=== PATIENT | female | born 1970 | race Caucasian/White ===

== ENCOUNTER → 2019-12-07 | Outpatient (CLI) | payer MEDICAID, MEDICARE, OTHER ==
[~2019-12-07] MED LIST: CALC600T10; FIBER THERAPY; FLEXERIL; OXYC80TA14; PHEN 25; PRIL20CA; SAVELLA; TOPI200T; TOVIAZ; VALI10TA; XANA0.5T; ZOLO25TA; ZOVI400T
== END ==
LOC: M PAIN 13:47
PROVIDERS: ATTEND Family Medicine
DX: M79.18 Myalgia, other site (principal)

== ENCOUNTER → 2019-12-24 | Outpatient (CLI) | payer MEDICAID, MEDICARE | LOC: M LABSMTC 13:56 | PROVIDERS: ATTEND Anesthesiology | DX: Z20.828 Contact with and (suspected) exposure to other viral communicable diseases (principal) | CPT/HCPCS: C9803; U0003 ==

== ENCOUNTER → 2019-12-29 | Outpatient (CLI) | payer MEDICARE ==
[~2019-12-29] MED LIST changes: +BUPIVACAINE HCL 0.25% 10ML VIAL As Ordered ONE; +BUPIVACAINE HCL 0.25% 30ML VIAL As Ordered ONE; +diazePAM 5 MG TAB As Ordered ONE; +oxyCODONE 5MG TAB As Ordered ONE
--- NOTE | 2019-12-30 23:24 | ECWPNPC ---
PATIENT NAME: RAGHAVENDRA PONCE : 1970 GENDER: FEMALE VISIT DATE: 12/29/2019 DISCHARGE DATE: 12/29/19 152 VISIT LOCKED DATE TIME: PHYSICIAN: ZEE CHOUDHARY MD RESOURCE: ZEE CHOUDHARY MD REASON FOR APPOINTMENT 1. BILATERAL NECK/SHOULDER TPI HISTORY OF PRESENT ILLNESS GENERAL: -. FALL RISK SCREENING: SCREENING :ONE FALL WITH INJURY IN THE PAST YEAR SHE WAS WALKING OUTSIDE IN BAD WEATHER AND LEFT LEG GAVE OUT ON HER, STATED SHE WAS NOT EVALUATED AFTER BUT INJURED HER LEFT KNEE PAIN SCREENING: PATIENT HAS A COMPLAINT OF ACUTE OR CHRONIC PAIN :YES LOCATION OF PAIN:NECK, BOTH SHOULDERS, OTHER: BOTH SHOULDER BLADES INTENSITY OF PAIN (SCALE OF 1 TO 10):9 WHAT DOES YOUR PAIN FEEL LIKE:ACHING, BURNING, CONTINOUS, SHARP, STABBING, TENDER, SORE, SHOOTING SOMETIMES DOWN SHOULDER BLADES, ARMS AND HANDS DURATION:CONTINOUS, CONSTANT, AWAKENS FROM SLEEP PAIN IS INCREASED BY:ACTIVITIES, PROLONGED STANDING DOING DISHES, HOUSE WORK PAIN IS DECREASED BY:USE OF PAIN MEDICATIONS, OTHERS REST, HEAT PAIN HAS INTERFERED WITH THE FOLLOWING: EVERYTHING NURSING NOTE: -. PAIN CENTER INTAKE QUESTIONS: DO YOU HAVE A HISTORY OF MRSA? :NO DO YOU TAKE A BLOOD THINNERS? :NO DO YOU HAVE ANY BLEEDING DISORDERS? :NO ANY NEW NUMBNESS OR WEAKNESS IN YOUR LEGS OR ARMS? :NO ANY PACEMAKER,DEFIBRILLATOR, OR DORSAL COLUMN STIMULATOR? :NO DO YOU HAVE ANY RASHES OR OPEN SORES? :NO ARE YOU ALLERGIC TO IV DYE? :NO ARE YOU DIABETIC? :NO ANY NEW PROBLEMS WITH YOUR MEDICATIONS? :NO HAVE YOU RECEIVED A VACCINE IN THE PAST 30 DAYS? :NO DO YOU PLAN TO RECEIVE A VACCINE IN THE NEXT 21 DAYS? :NO DO YOU TAKE ANY IMMUNOSUPPRESSIVE MEDICATIONS? :NO ANY HISTORY OF SEIZURES? :YES A LONG TIME AGO-WAS BIT BY A TICK AND HAD SPINAL MENINGITIS. WAS ON MEDICATIONS BUT NOT NOW ANY HISTORY OF CARDIAC ISSUES OR EVENTS? :NO DO YOU HAVE SLEEP APNEA? :NO ANY RECENT HEAD INJURY? :NO DO YOU HAVE ANY NEW INFECTIONS? :NO IS THERE A CHANCE YOU COULD BE ? :NO ARE YOU BREAST FEEDING? :NO WHEN DID YOU LAST EAT? : 12/28/2019 1830 WHEN DID YOU LAST DRINK? : 12/29/2019 0900 WHAT DID YOU LAST DRINK? : BLACK COFFEE NAME OF PERSON DRIVING YOU HOME? : [facility] [employer]-SO DO YOU HAVE ANY OTHER QUESTIONS OR CONCERNS? : - CURRENT MEDICATIONS TAKING GABAPENTIN 800 MG TABLET 1 TABLET ORALLY TID, NOTES: 12/29/19 0900 TAKING SONATA 10 MGS -1CAP ORALLY BEFORE BEDTIME NEEDED, NOTES: 12/28/19 TAKING VITAMIN D 50 MCG (2000 UT) TABLET 1 TABLET ORALLY ONCE A DAY, NOTES: 12/28/19 TAKING PROAIR HFA 108 (90 BASE) MCG/ACT AEROSOL SOLUTION 2 PUFFS NEEDED INHALATION QID PRN, NOTES: 12/29/19 TAKING PANTOPRAZOLE SODIUM 40 MG PACKET 1 PACKET MIXED WITH APPLE JUICE OR APPLESAUCE ORALLY ONCE A DAY, NOTES: 12/29/19 AM TAKING ONDANSETRON 4 MG TABLET DISINTEGRATING 1 TABLET ON THE TONGUE AND ALLOW TO DISSOLVE SUBLINGUALLY EVERY 4 HOURS NEEDED, NOTES: 12/28/19 TAKING PROPRANOLOL HCL ER 60 MG CAPSULE EXTENDED RELEASE 24 HOUR 1 CAPSULE ORALLY ONCE A DAY, NOTES: 12/28/19 TAKING SUMATRIPTAN SUCCINATE 50 MG TABLET 1 TABLET ORALLY BEFORE BEDTIME, NOTES: 12/28/19 TAKING OXYCODONE HCL 5 MG CAPSULE 1-2 CAPSULES ORALLY EVERY 4 HOURS NEEDED, NOTES: 12/29/19 TAKING ATORVASTATIN CALCIUM 10 MG TABLET 1 TABLET ORALLY ONCE A DAY, NOTES: 12/28/19 TAKING DULCOLAX STOOL SOFTENER 100 MG CAPSULE 1 CAPSULE NEEDED ORALLY ONCE A DAY, NOTES: 12/28/19 TAKING ACYCLOVIR 400 MG TABLET 1 TABLET ORALLY TWICE A DAY NEEDED, NOTES: NONE LATELY TAKING BUSPIRONE HCL 30 MG TABLET 1 TABLET ORALLY TWICE A DAY, NOTES: 12/29/19 AM TAKING SOLIFENACIN SUCCINATE 10 MG TABLET 1 TABLET ORALLY ONCE A DAY, NOTES: 12/28/19 NOT-TAKING NORTRIPYTLINE HCL 50 MGS-1CAP ORALLY BEFORE BEDTIME MEDICATION LIST REVIEWED AND RECONCILED WITH THE PATIENT PAST MEDICAL HISTORY NECK AND SHOULDER PAIN FIBROMYALGIA ARTHRITIS BRAIN ANEURYSM PTSD [facility] RIGHT EYE SPINAL MENINGITIS COPD CHRONIC KIDNEY DISEASE-CYST IN LEFT KIDNEY ALLERGIES BIAXIN: ABDOMINAL SWELLING - ALLERGY PEANUTS: ANAPHYLAXIS - ALLERGY SURGICAL HISTORY PLATES AND SCREWS IN NECK 2006 RODS AND SCREWS IN LUMBAR AREA 2010 APPENDECTOMY A CHILD FAMILY HISTORY FATHER: , LUNG CA 5 DE'S, SEVERAL CARDIAC STENTS, DIAGNOSED WITH DIABETES MOTHER: , FROM COMPLICATIONS FROM MVA, DIABETES 2 SON(S) - HEALTHY. OLDEST BROTHER- DIABETES, HEART [id number] OLDEST BROTHER- DIABETES. SOCIAL HISTORY GENERAL: TOBACCO USE ARE YOU A: VAPES PERIODICAL THROUGHTOUT THE DAY VAPORYES LATEX QUESTIONNAIRE LATEX ALLERGY : HAVE YOU EVER DEVELOPED ANY TYPE OF REACTION AFTER HANDLING LATEX PRODUCTS SUCH RUBBER GLOVES, CONDOMS, DIAPHRAGMS, BALLOONS, SOCKS, OR UNDERWEAR?NO LATEX ALLERGY : HAVE YOU EVER DEVELOPED ANY TYPE OF REACTION DURING OR AFTER DENTAL APPOINTMENT, VAGINAL/RECTAL EXAMINATION, SURGICAL PROCEDURE, OR ANY OTHER EXPOSURE?NO LATEX RISK : HAVE YOU EVER HAD ANY DIFFICULTY BREATHING OR HIVES AFTER EATING OR HANDLING ANY FRUITS, OR VEGETABLES; SUCH KIWI, BANANAS, STONE FRUITS, OR CHESTNUTSNO LATEX RISK : DO YOU HAVE A PREVIOUS PERSONAL HISTORY OF MORE THAN NINE SURGERIES, SPINA BIFIDA, OR REPEATED CATHERIZATIONS? NO LATEX RISK : ARE YOU FREQUENTLY EXPOSED TO LATEX PRODUCTS IN YOUR OCCUPATION?NO DATE ASKED : 12/28/2019 ALCOHOL SCREENING DID YOU HAVE A DRINK CONTAINING ALCOHOL IN THE PAST YEAR?NO POINTS0 INTERPRETATIONNEGATIVE RECREATIONAL DRUG USE DRUG USE?NO RASTAFARI [id number] EPISCOPAL LANGUAGE LANGUAGES SPOKEN:AMHARIC EDUCATION LEVEL OF EDUCATION: 11TH GRADE LEARNING BARRIERS / SPECIAL NEEDS BARRIERS TO LEARNING?NO HEARING IMPAIRED?NO VISION IMPAIRED?YES :CORRECTIVE LENSES BLIND IN RIGHT EYE COGNITIVELY IMPAIRED?NO READINESS TO LEARN?YES LEARNING PREFERENCES?NO LEARNING CAPABILITIES PRESENT?YES EMOTIONAL BARRIERS?NO SPECIAL DEVICES?YES :CANE, WALKER MAINTAINER OPERATOR NEEDED?NO DOMESTIC VIOLENCE DO YOU FEEL SAFE IN YOUR ENVIRONMENT?YES OCCUPATION: DISABLED. PAIN CLINIC PFS, CLERGY, PUBLIC HEALTH REFERRALS HAS THE PATIENT BEEN EDUCATED REGARDING HIS/HER PLAN OF CARE?YES HAS THE PATIENT BEEN EDUCATED REGARDING PAIN, THE RISK FOR PAIN, THE IMPORTANCE OF EFFECTIVE PAIN MANAGEMENT, AND THE PAIN ASSESSMENT PROCESS?YES ADVANCE DIRECTIVE ADVANCE DIRECTIVE DISCUSSED WITH PATIENT:YES 12/28/19 PT STATES SHE DOES NOT HAVE ANY ADVANCED DIRECTIVES. SHE DECLINED INFORMATION ON HCP AT THIS TIME HOSPITALIZATION/MAJOR DIAGNOSTIC PROCEDURE SURGERIES CHILDBIRTH MENTAL HEALTH VITAL SIGNS WT 200.2 LBS, HT 53 IN, BMI 50.10 INDEX, BP 130/82 MM HG, HR 103 /MIN, RR 18 /MIN, TEMP 98.6 F, OXYGEN SAT % 97%, NA INITIALS AW 1325, REVIEWED BY: EM. EXAMINATION GENERAL EXAMINATION: THE PATIENT IS ALERT, ORIENTED TIMES THREE AND COOPERATIVE. HEART SHOWS REGULAR RHYTHM, NO MURMURS AND NO GALLOPS. LUNGS ARE CLEAR TO AUSCULTATION. ASSESSMENTS MYALGIA, OTHER SITE - M79.18 (PRIMARY) TREATMENT MYALGIA, OTHER SITE MEDICATION: VALIUM TAB 10MG ORALLY (DIAZEPAM)MYRANDA MULLEN 12/29/2019 2:38:12 PM > VERIFIED OTTO SLATER 12/29/2019 2:42:46 PM > ADMINISTERED LOT # [id number] EXP: 06/04 MEDICATION: OXYCODONE HCL TAB 10MG ORALLYDEMYRANDA ORELLANA 12/29/2019 2:38:33 PM > VERIFIED OTTO SLATER 12/29/2019 2:43:26 PM > ADMINISTERED LOT # [id number] EXP: 04/2021 PROCEDURES PAIN NURSING RECORD PRE-PROCEDURE IV SITE N/A PROCEDURE IN ROOM 1305, PHYSICIAN IN ROOM 1501, START 1506, FINISH 1509, PHYSICIAN OUT OF ROOM 1509, OUT OF ROOM 1530, STEROID N/A, O2 RA, ECG N/A, PATIENT SHIELDED NO, SAFETY STRAP NO, PREP ALCOHOL BY DR CHOUDHARY, IV INFUSED N/A, DRESSING TEGADERM BY Steven ROLLE RN LOC: OTTO SLATER 12/29/2019 1520. ALERT, ORIENTED RESP: 1. REGULAR, NO DYSPNEA OTTO SLATER 12/29/2019 1520 COLOR: 1. PINK- OTTO SLATER 12/29/2019 152 SKIN: 1. WARM, DRY OTTO SLATER 12/29/2019 1520 POSITION: 4. OTHER- SITTING OTTO SLATER 12/29/2019 1520 VITALS: OTTO SLATER 12/29/2019 1520 PM> 121/86-64-18-96% DISCHARGE: POST PAIN 06/24- RIGHT NECK AND RIGHT SHOULDER, DRESSING SITE DRY AND INTACT, IV N/A, GAIT STEADY, TEACHING COMPLETED, PATIENT ACKNOWLEDGES UNDERSTANDING YES PATIENT VERBALIZES UNDERSTANDING OF DISCHARGE INSTRUCTIONS REVIEWED., PATIENT DISCHARGED AT 1522 PN TRIGGER POINT INJECTION NO STEROIDS PRE PROCEDURE DIAGNOSIS 1. MYALGIA 2. PAIN AT BILATERAL NECK AREA AND BILATERAL SHOULDER AREA POST PROCEDURE DIAGNOSIS 1. MYALGIA 2. PAIN AT BILATERAL NECK AREA AND BILATERAL SHOULDER AREA PROCEDURE TRIGGER POINT INJECTION AT BILATERAL NECK AREA AND BILATERAL SHOULDER AREA SURGEON DR. ZEE CHOUDHARY BENEFITS COUNSELOR NONE ANESTHESIA LOCAL PRE PROCEDURE NOTE THE PATIENT WITH HISTORY OF CHRONIC PAIN AT RIGHT AND LEFT NECK AREA AND RIGHT AND LEFT SHOULDER AREA. I EVALUATED THE PATIENT AND REVIEWED THE CHART. THERE IS EVIDENCE OF BANDS OF TISSUE WITH RESTRICTION OF MOVEMENT AND PRESENCE OF TRIGGER POINT AT THE RIGHT AND LEFT NECK AREA AND RIGHT AND LEFT SHOULDER AREA. I WENT OVER THE RISKS, ALTERNATIVES, AND BENEFITS ASSOCIATED WITH THIS PROCEDURE. THE PATIENT WOULD LIKE TO PROCEED AND GAVE CONSENT TO PERFORM THE PROCEDURE. THE PATIENT DENIES UNEXPLAINABLE WEIGHT LOSS, FEVER, CHILLS, OR NEW CHANGES IN URINARY OR BOWEL CONTROL. THE PATIENT IS COVID-19 NEGATIVE DESCRIPTION OF PROCEDURE THE PATIENT WAS BROUGHT TO THE PROCEDURE ROOM AND PLACED IN THE SITTING POSITION. THE AREA WAS CLEANED WITH ALCOHOL. THE PROCEDURE WAS DONE USING ASEPTIC STERILE TECHNIQUES. I CHECKED LATERALITY AND THE LEVEL WHERE THE PROCEDURE WAS GOING TO BE PERFORMED WITH THE PATIENT AND THE SUPPORTING STAFF AT THE MOMENT OF THE TIME OUT IN THE PROCEDURE ROOM. USING A 25-GAUGE NEEDLE, TRIGGER POINTS WERE INJECTED INTO THE RIGHT AND LEFT NECK AREA AND RIGHT AND LEFT SHOULDER AREA WITH A TOTAL OF 40 ML OF BUPIVACAINE 0.25%. AGREED WITH THE PATIENT THE PROCEDURE WAS DONE WITHOUT STEROIDS. THERE WAS NO EVIDENCE OF BLOOD, PARESTHESIA OR CEREBROSPINAL FLUID DURING THE PROCEDURE. THE PATIENT WAS SENT TO THE RECOVERY ROOM. THE PATIENT WAS MOVING THE EXTREMITIES AND DOING WELL. THERE WAS NO COMPLICATION DURING THE PROCEDURE. EBL LESS THAN 5 ML. POST PROCEDURE NOTE THE PROCEDURE DONE WAS DISCUSSED WITH THE PATIENT. THE PATIENT WILL BE SEEN IN A FOLLOW UP IN THE NEXT FEW WEEKS. I AM LOOKING FOR LONG LASTING PAIN RELIEF FOR THE PATIENT WITH THIS INTERVENTION. INSTRUCTIONS WERE GIVEN, QUESTIONS WERE ANSWERED, AND THE PATIENT EXPRESSED UNDERSTANDING AND AGREES WITH THE PLAN. I, NIMCO BRISENO, DOCUMENTED THE ABOVE INFORMATION ACTING A SCRIBE FOR DR. CHOUDHARY. I HAVE REVIEWED THE ABOVE DOCUMENT, WRITTEN BY NIMCO BRISENO, TOW MOTOR MECHANIC, AND I VERIFY THAT IT IS ACCURATE PROCEDURE CODES 94710 INJECT TRIGGER POINTS 3/> DISPOSITION & COMMUNICATION FOLLOW UP FOLLOW UP WITH CROSS ENTERPRISE INTEGRATOR (REASON: POST TPI BILATERAL NECK AND BILATERAL SHOULDER) ELECTRONICALLY SIGNED BY ZEE CHOUDHARY MD, MD ON 12/30/2019 AT 02:49 PM EDT DISCLAIMER : THIS IS A VISIT SUMMARY EXTRACTED FROM THE [employer] CHART. IT IS NOT A COPY OF THE [employer] PROGRESS NOTE. MTDD
== END ==
LOC: M PAIN 13:00
PROVIDERS: ATTEND Anesthesiology
DX: M79.18 Myalgia, other site (principal); M79.7 Fibromyalgia; F43.10 Post-traumatic stress disorder, unspecified; F32.9 Major depressive disorder, single episode, unspecified; J44.9 Chronic obstructive pulmonary disease, unspecified; N18.9 Chronic kidney disease, unspecified; F17.290 Nicotine dependence, other tobacco product, uncomplicated; Z79.891 Long term (current) use of opiate analgesic; Z79.899 Other long term (current) drug therapy; Z91.010 Allergy to peanuts; Z88.8 Allergy status to other drugs, medicaments and biological substances

== ENCOUNTER → 2020-01-13 | Outpatient (CLI) | payer MEDICARE ==
[~2020-01-13] MED LIST changes: -BUPIVACAINE HCL 0.25% 10ML VIAL As Ordered ONE; -BUPIVACAINE HCL 0.25% 30ML VIAL As Ordered ONE; -diazePAM 5 MG TAB As Ordered ONE; -oxyCODONE 5MG TAB As Ordered ONE
--- NOTE | 2020-01-15 02:25 | ECWPNPC ---
PATIENT NAME: RAGHAVENDRA PONCE : 1970 GENDER: FEMALE VISIT DATE: 01/13/2020 DISCHARGE DATE: 01/13/20 1515 VISIT LOCKED DATE TIME: PHYSICIAN: DAMION ABRAMS RESOURCE: DAMION ABRAMS REASON FOR APPOINTMENT 1. POST TPI BILAT NECK/SHOULDER HISTORY OF PRESENT ILLNESS DEPRESSION SCREENING: PHQ-2 (2015 EDITION) LITTLE INTEREST OR PLEASURE IN DOING THINGS?NOT AT ALL FEELING DOWN, DEPRESSED, OR HOPELESS?NOT AT ALL TOTAL SCORE0 49-YEAR-OLD FEMALE IN FOR POST TRIGGER POINT INJECTION FOLLOW-UP. SHE FEELS THE PROCEDURE WAS UNSUCCESSFUL. SHE RATES HER PAIN CURRENTLY AT A 9 OUT OF 10 AND DESCRIBES IT BURNING, AND STABBING. GENERAL: -. FALL RISK SCREENING: SCREENING :NO FALLS REPORTED IN THE LAST YEAR NONE PAIN SCREENING: PATIENT HAS A COMPLAINT OF ACUTE OR CHRONIC PAIN :YES LOCATION OF PAIN:NECK, LEFT SHOULDER, RIGHT SHOULDER, LOW BACK INTENSITY OF PAIN (SCALE OF 1 TO 10):9 PAIN LEVEL AT A 9 FOR NECK, SHOULDERS AND LOWER BACK WHAT DOES YOUR PAIN FEEL LIKE:BURNING, STABBING DURATION:CONTINOUS PAIN IS INCREASED BY:ACTIVITIES PAIN IS DECREASED BY:USE OF PAIN MEDICATIONS NURSING NOTE: -. PAIN CENTER INTAKE QUESTIONS: DO YOU HAVE A HISTORY OF MRSA? :NO DO YOU TAKE A BLOOD THINNERS? :NO DO YOU HAVE ANY BLEEDING DISORDERS? :NO ANY NEW NUMBNESS OR WEAKNESS IN YOUR LEGS OR ARMS? :YES ANY PACEMAKER,DEFIBRILLATOR, OR DORSAL COLUMN STIMULATOR? :NO DO YOU HAVE ANY RASHES OR OPEN SORES? :NO ARE YOU ALLERGIC TO IV DYE? :NO ARE YOU DIABETIC? :NO ANY NEW PROBLEMS WITH YOUR MEDICATIONS? :NO HAVE YOU RECEIVED A VACCINE IN THE PAST 30 DAYS? :NO DO YOU PLAN TO RECEIVE A VACCINE IN THE NEXT 21 DAYS? :NO DO YOU NEED ANY PRESCRIPTION? :NO DO YOU TAKE ANY IMMUNOSUPPRESSIVE MEDICATIONS? :NO IS THERE A CHANCE YOU COULD BE ? :NO ARE YOU BREAST FEEDING? :NO CURRENT MEDICATIONS TAKING GABAPENTIN 800 MG TABLET 1 TABLET ORALLY TID, NOTES: 12/29/19 0900 TAKING SONATA 10 MGS -1CAP ORALLY BEFORE BEDTIME NEEDED, NOTES: 12/28/19 TAKING VITAMIN D 50 MCG (2000 UT) TABLET 1 TABLET ORALLY ONCE A DAY, NOTES: 12/28/19 TAKING PROAIR HFA 108 (90 BASE) MCG/ACT AEROSOL SOLUTION 2 PUFFS NEEDED INHALATION QID PRN, NOTES: 12/29/19 TAKING PANTOPRAZOLE SODIUM 40 MG PACKET 1 PACKET MIXED WITH APPLE JUICE OR APPLESAUCE ORALLY ONCE A DAY, NOTES: 12/29/19 AM TAKING ONDANSETRON 4 MG TABLET DISINTEGRATING 1 TABLET ON THE TONGUE AND ALLOW TO DISSOLVE SUBLINGUALLY EVERY 4 HOURS NEEDED, NOTES: 12/28/19 TAKING SUMATRIPTAN SUCCINATE 50 MG TABLET 1 TABLET ORALLY BEFORE BEDTIME, NOTES: 12/28/19 TAKING OXYCODONE HCL 5 MG CAPSULE 1-2 CAPSULES ORALLY EVERY 4 HOURS NEEDED, NOTES: 12/29/19 TAKING ATORVASTATIN CALCIUM 10 MG TABLET 1 TABLET ORALLY ONCE A DAY, NOTES: 12/28/19 TAKING DULCOLAX STOOL SOFTENER 100 MG CAPSULE 1 CAPSULE NEEDED ORALLY ONCE A DAY, NOTES: 12/28/19 TAKING ACYCLOVIR 400 MG TABLET 1 TABLET ORALLY TWICE A DAY NEEDED, NOTES: NONE LATELY TAKING BUSPIRONE HCL 30 MG TABLET 1 TABLET ORALLY TWICE A DAY, NOTES: 12/29/19 AM TAKING SOLIFENACIN SUCCINATE 10 MG TABLET 1 TABLET ORALLY ONCE A DAY, NOTES: 12/28/19 TAKING LEVOTHROYXINE 25MG 1PILL 1 1 TIMES A DAY NOT-TAKING PROPRANOLOL HCL ER 60 MG CAPSULE EXTENDED RELEASE 24 HOUR 1 CAPSULE ORALLY ONCE A DAY, NOTES: 12/28/19 NOT-TAKING NORTRIPYTLINE HCL 50 MGS-1CAP ORALLY BEFORE BEDTIME MEDICATION LIST REVIEWED AND RECONCILED WITH THE PATIENT PAST MEDICAL HISTORY NECK AND SHOULDER PAIN FIBROMYALGIA ARTHRITIS BRAIN ANEURYSM PTSD DEPRESSION-FOLLOWS WITH [facility] BLIND IN RIGHT EYE SPINAL MENINGITIS COPD CHRONIC KIDNEY DISEASE-CYST IN LEFT KIDNEY ALLERGIES BIAXIN: ABDOMINAL SWELLING - ALLERGY PEANUTS: ANAPHYLAXIS - ALLERGY SURGICAL HISTORY PLATES AND SCREWS IN NECK 2006 RODS AND SCREWS IN LUMBAR AREA 2010 APPENDECTOMY A CHILD FAMILY HISTORY FATHER: , LUNG CA 5 HI'S, SEVERAL CARDIAC STENTS, DIAGNOSED WITH DIABETES MOTHER: , FROM COMPLICATIONS FROM MVA, DIABETES 2 SON(S) - HEALTHY. OLDEST BROTHER- DIABETES, HEART [id number] OLDEST BROTHER- DIABETES. SOCIAL HISTORY GENERAL: TOBACCO USE ARE YOU A: VAPES PERIODICAL THROUGHTOUT THE DAY VAPORYES LATEX QUESTIONNAIRE LATEX ALLERGY : HAVE YOU EVER DEVELOPED ANY TYPE OF REACTION AFTER HANDLING LATEX PRODUCTS SUCH RUBBER GLOVES, CONDOMS, DIAPHRAGMS, BALLOONS, SOCKS, OR UNDERWEAR?NO LATEX ALLERGY : HAVE YOU EVER DEVELOPED ANY TYPE OF REACTION DURING OR AFTER DENTAL APPOINTMENT, VAGINAL/RECTAL EXAMINATION, SURGICAL PROCEDURE, OR ANY OTHER EXPOSURE?NO LATEX RISK : HAVE YOU EVER HAD ANY DIFFICULTY BREATHING OR HIVES AFTER EATING OR HANDLING ANY FRUITS, OR VEGETABLES; SUCH KIWI, BANANAS, STONE FRUITS, OR CHESTNUTSNO LATEX RISK : DO YOU HAVE A PREVIOUS PERSONAL HISTORY OF MORE THAN NINE SURGERIES, SPINA BIFIDA, OR REPEATED CATHERIZATIONS? NO LATEX RISK : ARE YOU FREQUENTLY EXPOSED TO LATEX PRODUCTS IN YOUR OCCUPATION?NO DATE ASKED : 01/13/2020 ALCOHOL SCREENING DID YOU HAVE A DRINK CONTAINING ALCOHOL IN THE PAST YEAR?NO POINTS0 INTERPRETATIONNEGATIVE RECREATIONAL DRUG USE DRUG USE?NO MORMON [id number] TAOISM LANGUAGE LANGUAGES SPOKEN:CZECH EDUCATION LEVEL OF EDUCATION: 11TH GRADE LEARNING BARRIERS / SPECIAL NEEDS BARRIERS TO LEARNING?NO HEARING IMPAIRED?NO VISION IMPAIRED?YES COGNITIVELY IMPAIRED?NO :CORRECTIVE LENSES BLIND IN RIGHT EYE READINESS TO LEARN?YES LEARNING PREFERENCES?NO LEARNING CAPABILITIES PRESENT?YES EMOTIONAL BARRIERS?NO SPECIAL DEVICES?YES :CANE, WALKER MILIEU THERAPIST NEEDED?NO DOMESTIC VIOLENCE DO YOU FEEL SAFE IN YOUR ENVIRONMENT?YES OCCUPATION: DISABLED. PAIN CLINIC PFS, CLERGY, PUBLIC HEALTH REFERRALS HAS THE PATIENT BEEN EDUCATED REGARDING HIS/HER PLAN OF CARE?YES HAS THE PATIENT BEEN EDUCATED REGARDING PAIN, THE RISK FOR PAIN, THE IMPORTANCE OF EFFECTIVE PAIN MANAGEMENT, AND THE PAIN ASSESSMENT PROCESS?YES ADVANCE DIRECTIVE ADVANCE DIRECTIVE DISCUSSED WITH PATIENT:YES 12/28/19 PT STATES SHE DOES NOT HAVE ANY ADVANCED DIRECTIVES. SHE DECLINED INFORMATION ON HCP AT THIS TIME HOSPITALIZATION/MAJOR DIAGNOSTIC PROCEDURE SURGERIES CHILDBIRTH MENTAL HEALTH REVIEW OF SYSTEMS CONSTITUTIONAL: ANY RECENT FEVER NO . CHILLS NO . WEIGHT CHANGE OF UNKNOWN REASONS NO . GASTROENTEROLOGY: NEW UNEXPLAINABLE CHANGES IN BOWEL CONTROL NO . CONSTIPATION NO . GENITOURINARY: ANY NEW CHANGE IN BLADDER CONTROL? NO . NEUROLOGY: NEW ONSET DIZZINESS OR NEUROLOGICAL CHANGES NOT MENTIONED NO . NEW NUMBNESS OR PAIN PATTERNS NOT MENTIONED AND PERTINENT TO TODAY'S VISIT NO . CARDIOLOGY: NEW CHEST PRESSURE NO . NEW CHEST PAIN NO . RESPIRATORY: UNEXPLAINABLE COUGH NO . NEW SHORTNESS OF BREATH NO . VITAL SIGNS WT 205.6 LBS, HT 53 IN, BMI 51.45 INDEX, BP 146/83 MM HG, HR 103 /MIN, RR 18 /MIN, TEMP 96 F, OXYGEN SAT % 96%, SAFE IN ENV? (Y/N) YES, NA INITIALS PA 14:41, REVIEWED BY: PATI. EXAMINATION GENERAL EXAMINATION: GENERALNO ACUTE DISTRESS, WELL NOURISHED AND HYDRATED. PSYCHAPPROPRIATE MOOD AND AFFECT . NECK:POINT TENDER ALONG CERVICAL SPINE, SURROUNDING SKIN SHOWS NO ERYTHEMA, ECCHYMOSIS, INCREASED WARMTH, AND/OR SKIN ERUPTIONS NOTED. PATIENT DOES ENDORSE INCREASED PAIN WHEN ASKED LIFT ARMS AGAINST RESISTANCE. SPURLING SIGN POSITIVE. . LUNGS:CLEAR TO AUSCULTATION BILATERALLY, NO WHEEZES, RHONCHI, RALES. HEART:NO MURMURS, REGULAR RATE AND RHYTHM. ASSESSMENTS OTHER CHRONIC PAIN - G89.29 (PRIMARY) RADICULOPATHY, CERVICAL REGION - M54.12 TREATMENT OTHER CHRONIC PAIN PAIN PROCEDURE LOGDATE OF [id number]/14/2020PROCEDURE:TRIGGER POINT INJECTIONS BILATERAL NECK AND SHOULDERSAMOUNT OF PRE [id number] MG VALIUM 10 MG OXYCODONERESULT:UNSUCCESSFUL NOTES: 49-YEAR-OLD FEMALE IN FOR POST TRIGGER POINT INJECTION FOLLOW-UP. GIVEN PRESENTING SYMPTOMS AND RESULTS OF PHYSICAL EXAMINATION RECOMMENDED TOMMY C7-T1 WITH POSTPROCEDURAL FOLLOW-UP. PATIENT HAS EXPRESSED UNDERSTANDING OF AND WAS IN AGREEMENT WITH TREATMENT PLAN. GIVEN TIME TO ASK QUESTIONS AND EXPRESS CONCERNS. CLINICAL NOTES: TOMMY C7-T1. PROCEDURE CODES [id number] ESTABILISHED PATIENT [facility] FACILITY CHARGE DISPOSITION & COMMUNICATION FOLLOW UP POSTPROCEDURE (REASON: TOMMY C7-T1 WITH IV SEDATION) ELECTRONICALLY SIGNED BY TOMMY KNOWLES ON 01/14/2020 AT 11:11 AM EDT DISCLAIMER : THIS IS A VISIT SUMMARY EXTRACTED FROM THE [employer] CHART. IT IS NOT A COPY OF THE [employer] PROGRESS NOTE. CASSIDY
== END ==
LOC: M PAIN 14:30
PROVIDERS: ATTEND Family Medicine
DX: M54.12 Radiculopathy, cervical region (principal); G89.29 Other chronic pain; M79.7 Fibromyalgia; J44.9 Chronic obstructive pulmonary disease, unspecified; F17.290 Nicotine dependence, other tobacco product, uncomplicated; Z86.59 Personal history of other mental and behavioral disorders; Z88.1 Allergy status to other antibiotic agents; Z91.010 Allergy to peanuts; E66.01 Morbid (severe) obesity due to excess calories; Z68.43 Body mass index [BMI] 50.0-59.9, adult; Z79.899 Other long term (current) drug therapy

== ENCOUNTER → 2020-02-02 | Outpatient (CLI) | payer OTHER | LOC: M LABSMTC 14:26 | PROVIDERS: ATTEND Anesthesiology | DX: Z20.828 Contact with and (suspected) exposure to other viral communicable diseases (principal) ==

== ENCOUNTER → 2020-02-03 | Outpatient (CLI) | payer MEDICARE ==
--- NOTE | 2020-02-04 23:59 | ECWPNPC ---
PATIENT NAME: RAGHAVENDRA PONCE : 1970 GENDER: FEMALE VISIT DATE: 02/03/2020 DISCHARGE DATE: 02/03/20 1647 VISIT LOCKED DATE TIME: PHYSICIAN: ZEE CHOUDHARY MD RESOURCE: ZEE CHOUDHARY MD REASON FOR APPOINTMENT 1. PRE SEDATE FOR TOMMY HISTORY OF PRESENT ILLNESS GENERAL: 49-YEAR-OLD FEMALE PATIENT WITH A HISTORY OF CHRONIC NECK AND MAINLY ARM PAIN. THE PATIENT DESCRIBES THE PAIN ACHING AND SEVERE WITH A PAIN SCORE RANGING FROM 6-9/10 DEPENDING ON PHYSICAL ACTIVITY IN THE NECK WITH RADIATION TO BOTH ARMS. SHE HAS BEEN SUFFERING FROM THIS FOR MORE THAN A YEAR. THIS HAS BEEN AFFECTING HER ABILITY TO CLEAN HER HOUSE AND GROCERY SHOP. PATIENT DENIES UNEXPLAINABLE WEIGHT LOSS, FEVER, CHILLS, NEW CHANGES ON URINARY OR BOWEL CONTROL. -. FALL RISK SCREENING: SCREENING :ONE FALL WITH INJURY IN THE PAST YEAR SLIPPED ON ICE WITH ABBRASION ON LEFT KNEE-NOT EVALUATED AFTER PAIN SCREENING: PATIENT HAS A COMPLAINT OF ACUTE OR CHRONIC PAIN :YES LOCATION OF PAIN:NECK, OTHER: BILATERAL ARMS INTENSITY OF PAIN (SCALE OF 1 TO 10):8 WHAT DOES YOUR PAIN FEEL LIKE:BURNING, CONTINOUS, SHARP, STABBING, TENDER, SORE, SHOOTING DURATION:CONTINOUS, CONSTANT, AWAKENS FROM SLEEP PAIN IS INCREASED BY:ACTIVITIES FOLDING CLOTHES PAIN IS DECREASED BY: HEAT, REST WITH PILLOW UNDER NECK IN A CERTAIN POSITION NURSING NOTE: -. PAIN CENTER INTAKE QUESTIONS: DO YOU HAVE A HISTORY OF MRSA? :NO DO YOU TAKE A BLOOD THINNERS? :NO DO YOU HAVE ANY BLEEDING DISORDERS? :NO ANY NEW NUMBNESS OR WEAKNESS IN YOUR LEGS OR ARMS? :NO ANY PACEMAKER,DEFIBRILLATOR, OR DORSAL COLUMN STIMULATOR? :NO DO YOU HAVE ANY RASHES OR OPEN SORES? :YES CUT RIGHT INDEX FINGER ARE YOU ALLERGIC TO IV DYE? :NO ARE YOU DIABETIC? :NO ANY NEW PROBLEMS WITH YOUR MEDICATIONS? :NO HAVE YOU RECEIVED A VACCINE IN THE PAST 30 DAYS? :NO DO YOU PLAN TO RECEIVE A VACCINE IN THE NEXT 21 DAYS? :NO DO YOU NEED ANY PRESCRIPTION? :NO DO YOU TAKE ANY IMMUNOSUPPRESSIVE MEDICATIONS? :NO IS THERE A CHANCE YOU COULD BE ? :NO ARE YOU BREAST FEEDING? :NO CURRENT MEDICATIONS TAKING GABAPENTIN 800 MG TABLET 1 TABLET ORALLY TID TAKING SONATA 10 MGS -1CAP ORALLY BEFORE BEDTIME NEEDED TAKING VITAMIN D 50 MCG (2000 UT) TABLET 1 TABLET ORALLY ONCE A DAY TAKING PROAIR HFA 108 (90 BASE) MCG/ACT AEROSOL SOLUTION 2 PUFFS NEEDED INHALATION QID PRN TAKING PANTOPRAZOLE SODIUM 40 MG TABLET DELAYED RELEASE 1 TAB ORALLY ONCE A DAY TAKING ONDANSETRON 4 MG TABLET DISINTEGRATING 1 TABLET ON THE TONGUE AND ALLOW TO DISSOLVE SUBLINGUALLY EVERY 4 HOURS NEEDED TAKING SUMATRIPTAN SUCCINATE 50 MG TABLET 1 TABLET ORALLY BEFORE BEDTIME TAKING OXYCODONE HCL 5 MG CAPSULE 1-2 CAPSULES ORALLY EVERY 4 HOURS NEEDED TAKING ATORVASTATIN CALCIUM 10 MG TABLET 1 TABLET ORALLY ONCE A DAY TAKING DULCOLAX STOOL SOFTENER 100 MG CAPSULE 1 CAPSULE NEEDED ORALLY ONCE A DAY TAKING ACYCLOVIR 400 MG TABLET 1 TABLET ORALLY TWICE A DAY NEEDED TAKING BUSPIRONE HCL 30 MG TABLET 1 TABLET ORALLY TWICE A DAY TAKING SOLIFENACIN SUCCINATE 10 MG TABLET 1 TABLET ORALLY ONCE A DAY TAKING LEVOTHROYXINE 25MG 1PILL 1 1 TIMES A DAY NOT-TAKING PROPRANOLOL HCL ER 60 MG CAPSULE EXTENDED RELEASE 24 HOUR 1 CAPSULE ORALLY ONCE A DAY, NOTES: 12/28/19 NOT-TAKING NORTRIPYTLINE HCL 50 MGS-1CAP ORALLY BEFORE BEDTIME MEDICATION LIST REVIEWED AND RECONCILED WITH THE PATIENT PAST MEDICAL HISTORY NECK AND SHOULDER PAIN FIBROMYALGIA ARTHRITIS BRAIN ANEURYSM PTSD DEPRESSION-FOLLOWS WITH [facility] BLIND IN RIGHT EYE SPINAL MENINGITIS COPD CHRONIC KIDNEY DISEASE-CYST IN LEFT KIDNEY GALLBLADDER DISEASE BACK PAIN ALLERGIES BIAXIN: ABDOMINAL SWELLING - ALLERGY PEANUTS: ANAPHYLAXIS - ALLERGY SURGICAL HISTORY PLATES AND SCREWS IN NECK 2006 RODS AND SCREWS IN LUMBAR AREA 2010 APPENDECTOMY A CHILD FAMILY HISTORY FATHER: , LUNG CA 5 AK'S, SEVERAL CARDIAC STENTS, DIAGNOSED WITH DIABETES MOTHER: , FROM COMPLICATIONS FROM MVA, DIABETES 2 SON(S) - HEALTHY. OLDEST BROTHER- DIABETES, HEART [id number] OLDEST BROTHER- DIABETES. SOCIAL HISTORY GENERAL: TOBACCO USE ARE YOU A: VAPES PERIODICAL THROUGHTOUT THE DAY VAPORYES LATEX QUESTIONNAIRE LATEX ALLERGY : HAVE YOU EVER DEVELOPED ANY TYPE OF REACTION AFTER HANDLING LATEX PRODUCTS SUCH RUBBER GLOVES, CONDOMS, DIAPHRAGMS, BALLOONS, SOCKS, OR UNDERWEAR?NO LATEX ALLERGY : HAVE YOU EVER DEVELOPED ANY TYPE OF REACTION DURING OR AFTER DENTAL APPOINTMENT, VAGINAL/RECTAL EXAMINATION, SURGICAL PROCEDURE, OR ANY OTHER EXPOSURE?NO LATEX RISK : HAVE YOU EVER HAD ANY DIFFICULTY BREATHING OR HIVES AFTER EATING OR HANDLING ANY FRUITS, OR VEGETABLES; SUCH KIWI, BANANAS, STONE FRUITS, OR CHESTNUTSNO LATEX RISK : DO YOU HAVE A PREVIOUS PERSONAL HISTORY OF MORE THAN NINE SURGERIES, SPINA BIFIDA, OR REPEATED CATHERIZATIONS? NO LATEX RISK : ARE YOU FREQUENTLY EXPOSED TO LATEX PRODUCTS IN YOUR OCCUPATION?NO DATE ASKED : 02/03/2020 ALCOHOL SCREENING DID YOU HAVE A DRINK CONTAINING ALCOHOL IN THE PAST YEAR?NO POINTS0 INTERPRETATIONNEGATIVE RECREATIONAL DRUG USE DRUG USE?NO QUAKER [id number] DRUZE LANGUAGE LANGUAGES SPOKEN:UKRAINIAN EDUCATION LEVEL OF EDUCATION: 11TH GRADE LEARNING BARRIERS / SPECIAL NEEDS BARRIERS TO LEARNING?NO HEARING IMPAIRED?NO VISION IMPAIRED?YES :CORRECTIVE LENSES BLIND IN RIGHT EYE COGNITIVELY IMPAIRED?NO READINESS TO LEARN?YES LEARNING PREFERENCES?NO LEARNING CAPABILITIES PRESENT?YES EMOTIONAL BARRIERS?NO SPECIAL DEVICES?YES :CANE, WALKER ANIMAL RIDES MANAGER NEEDED?NO DOMESTIC VIOLENCE DO YOU FEEL SAFE IN YOUR ENVIRONMENT?YES OCCUPATION: DISABLED. PAIN CLINIC PFS, CLERGY, PUBLIC HEALTH REFERRALS HAS THE PATIENT BEEN EDUCATED REGARDING HIS/HER PLAN OF CARE?YES HAS THE PATIENT BEEN EDUCATED REGARDING PAIN, THE RISK FOR PAIN, THE IMPORTANCE OF EFFECTIVE PAIN MANAGEMENT, AND THE PAIN ASSESSMENT PROCESS?YES ADVANCE DIRECTIVE ADVANCE DIRECTIVE DISCUSSED WITH PATIENT:YES 02/03/20 PT STATES SHE DOES NOT HAVE ANY ADVANCED DIRECTIVES. SHE DECLINED INFORMATION ON HCP AT THIS TIME HOSPITALIZATION/MAJOR DIAGNOSTIC PROCEDURE SURGERIES CHILDBIRTH MENTAL HEALTH REVIEW OF SYSTEMS GLAUCOMA: NOTHYROID DISEASE: YES, HYPOTHYROIDISMHYPERTENSION: NOHEART DISEASE: NOLUNG DISEASE: NODIABETES: NOGI DISEASE: NO LIVER DISEASE: NO KIDNEY DISEASE: YES, KIDNEY CYSTSTERIOD USE: NONEUROLOGICAL DISEASE: NOBACK PROBLEMS: YES, PAINEXTREMITIES: YES,GENITOURINARY: URINARY INCONTINENCE ON MEDICATION BLEEDING DISORDER: NOASA CLASS: [id number] CLASS: II. VITAL SIGNS WT 205.6 LBS, HT 53 IN, BMI 51.45 INDEX, BP 144/84 MM HG, HR 99 /MIN, RR 18 /MIN, TEMP 99 F, OXYGEN SAT % 95%. EXAMINATION GENERAL EXAMINATION: THE PATIENT IS ALERT, ORIENTED TIMES THREE AND COOPERATIVE. HEART SHOWS REGULAR RHYTHM, NO MURMURS AND NO GALLOPS. LUNGS ARE CLEAR TO AUSCULTATION. THE RIGHT ARM IS A LITTLE WEAKER ON FLEXION AND EXTENSION. HAND DRAMA PROFESSOR IS A LITTLE WEAKER ON THE RIGHT. CERVICAL MRI DATED 10/12/2019 SHOWS SOME FUSION FROM C5-C7. ASSESSMENTS CERVICAL POST-LAMINECTOMY SYNDROME - M96.1 (PRIMARY) TREATMENT CERVICAL POST-LAMINECTOMY SYNDROME MEDICATION: VERSED 1MG IV (MIDAZOLAM) (ORDERED FOR 03/04/2020) MEDICATION: FENTANYL CITRATE 50MCG IV (ORDERED FOR 03/04/2020) OXYGEN AT 2 LITERS PER NASAL CANNULA (ORDERED FOR 03/04/2020) IV LACTATED RINGER'S AT [facility] (ORDERED FOR 03/04/2020) CLINICAL NOTES: I DISCUSSED ALTERNATIVES WITH MS. PONCE. WE BOTH AGREE ON MOVING FORWARD WITH AN EPIDURAL WITH IV SEDATION DUE TO ANXIETY AND DISCOMFORT ASSOCIATED WITH THE PROCEDURE. THE PATIENT REPORTS UNDERSTANDING AND AGREES WITH THE PLAN. I, NIMCO BRISENO, DOCUMENTED THE ABOVE INFORMATION ACTING A SCRIBE FOR DR. CHOUDHARY. I HAVE REVIEWED THE ABOVE DOCUMENT, WRITTEN BY NIMCO BRISENO, END STAPLER, AND I VERIFY THAT IT IS ACCURATE. PREVENTIVE MEDICINE PAIN CLINIC TEACHING: PROCEDURE TEACHING PRINTED INFORMATION ON CERVICAL EPIDURAL STEROID INJECTION GIVEN TO AND REVIEWED WITH PT ALONG WITH PRINTED PRE-PROCEDURE INSTRUCTIONS AND PT VERBALIZED UNDERSTANDING. MYRANDA MULLEN 02/03/2020 4:45:28 PM > . PROCEDURE CODES FA211 ESTABILISHED PATIENT MERGED WITH [facility] CHARGE [id number] OFFICE/OUTPATIENT VISIT EST DISPOSITION & COMMUNICATION FOLLOW UP ALREADY BOOKED (REASON: TOMMY) ELECTRONICALLY SIGNED BY ZEE CHOUDHARY MD, ON 02/04/2020 AT 02:01 PM EST DISCLAIMER : THIS IS A VISIT SUMMARY EXTRACTED FROM THE [facility] CHART. IT IS NOT A COPY OF THE [facility] PROGRESS NOTE. MTDD
== END ==
LOC: M PAIN 15:00
PROVIDERS: ATTEND Anesthesiology
DX: M96.1 Postlaminectomy syndrome, not elsewhere classified (principal); M79.7 Fibromyalgia; F43.10 Post-traumatic stress disorder, unspecified; F32.9 Major depressive disorder, single episode, unspecified; J44.9 Chronic obstructive pulmonary disease, unspecified; N18.9 Chronic kidney disease, unspecified; N28.1 Cyst of kidney, acquired; F17.290 Nicotine dependence, other tobacco product, uncomplicated; Z79.891 Long term (current) use of opiate analgesic; Z79.899 Other long term (current) drug therapy; Z91.010 Allergy to peanuts; Z88.8 Allergy status to other drugs, medicaments and biological substances

== ENCOUNTER → 2020-02-07 | Outpatient (CLI) | payer MEDICARE ==
[~2020-02-07] MED LIST changes: +ISOVUE-M 300 61% 15ML VIAL As Ordered ONE; +LIDOCAINE 1% SDV 30ML VIAL As Ordered ONE; +MIDAZOLAM INJ 2MG/2ML VIAL (J2250 PER 1MG) As Ordered ONE; +fentaNYL 100 MCG/2 ML INJECTION (J3010) As Ordered ONE; +methylPREDNISolone SUSP 40MG/ML 1ML VIAL (DEPO MEDROL) As Ordered ONE
--- NOTE | 2020-02-07 10:41 | REP ---
INDICATION: CERVICAL EPIDURAL STEROID INJECTION. COMPARISON: None. TECHNIQUE: Three C-arm views lower cervical spine performed. FINDINGS: Metallic plate and screws are seen in the lower cervical spine. A needle is seen at the cervicothoracic junction and small amount of contrast is injected. IMPRESSION: 35 seconds fluoroscopy time utilized. <Electronically signed by Gabriel Ortiz > 02/07/20 1038
--- NOTE | 2020-02-17 01:22 | ECWPNPC ---
PATIENT NAME: RAGHAVENDRA PONCE : 1970 GENDER: FEMALE VISIT DATE: 02/07/2020 DISCHARGE DATE: 02/07/20 1012 VISIT LOCKED DATE TIME: PHYSICIAN: ZEE CHOUDHARY MD RESOURCE: ZEE CHOUDHARY MD REASON FOR APPOINTMENT 1. CERVICAL EPIDURAL STEROID INJECTION C7/T1 WITH IV SEDATION HISTORY OF PRESENT ILLNESS GENERAL: -. FALL RISK SCREENING: SCREENING :ONE FALL WITHOUT INJURY IN THE PAST YEAR FALL RESULTING IN SCRAPPED KNEE, NO MEDICAL INTERVENTION RELATED TO WINTER/ICE. PAIN SCREENING: PATIENT HAS A COMPLAINT OF ACUTE OR CHRONIC PAIN :YES LOCATION OF PAIN:NECK, OTHER: ARMS INTENSITY OF PAIN (SCALE OF 1 TO 10):9 WHAT DOES YOUR PAIN FEEL LIKE:CONTINOUS, SHARP DURATION:CONTINOUS, AWAKENS FROM SLEEP PAIN IS INCREASED BY:ACTIVITIES, PROLONGED STANDING NURSING NOTE: -. PAIN CENTER INTAKE QUESTIONS: DO YOU HAVE A HISTORY OF MRSA? :NO DO YOU TAKE A BLOOD THINNERS? :NO DO YOU HAVE ANY BLEEDING DISORDERS? :NO ANY NEW NUMBNESS OR WEAKNESS IN YOUR LEGS OR ARMS? :NO ANY PACEMAKER,DEFIBRILLATOR, OR DORSAL COLUMN STIMULATOR? :NO DO YOU HAVE ANY RASHES OR OPEN SORES? :NO ARE YOU ALLERGIC TO IV DYE? :NO ARE YOU DIABETIC? :NO ANY NEW PROBLEMS WITH YOUR MEDICATIONS? :NO HAVE YOU RECEIVED A VACCINE IN THE PAST 30 DAYS? :NO DO YOU PLAN TO RECEIVE A VACCINE IN THE NEXT 21 DAYS? :NO DO YOU TAKE ANY IMMUNOSUPPRESSIVE MEDICATIONS? :NO ANY HISTORY OF SEIZURES? :NO ANY HISTORY OF CARDIAC ISSUES OR EVENTS? :NO DO YOU HAVE SLEEP APNEA? :NO ANY RECENT HEAD INJURY? :NO DO YOU HAVE ANY NEW INFECTIONS? :NO IS THERE A CHANCE YOU COULD BE ? :NO ARE YOU BREAST FEEDING? :NO WHEN DID YOU LAST EAT? : 02/06/20 1800 WHEN DID YOU LAST DRINK? : 02/07/20 0500 WHAT DID YOU LAST DRINK? : WATER NAME OF PERSON DRIVING YOU HOME? : LEIGHA ([employer]) DO YOU HAVE ANY OTHER QUESTIONS OR CONCERNS? : NO CURRENT MEDICATIONS TAKING GABAPENTIN 800 MG TABLET 1 TABLET ORALLY TID, NOTES: 02/06 0500 TAKING SONATA 10 MGS -1CAP ORALLY BEFORE BEDTIME NEEDED, NOTES: 02/05 2100 TAKING VITAMIN D 50 MCG (1999 UT) TABLET 1 TABLET ORALLY ONCE A DAY, NOTES: 02/05 1900 TAKING PROAIR HFA 108 (90 BASE) MCG/ACT AEROSOL SOLUTION 2 PUFFS NEEDED INHALATION QID PRN, NOTES: 02/06 500 TAKING PANTOPRAZOLE SODIUM 40 MG TABLET DELAYED RELEASE 1 TAB ORALLY ONCE A DAY, NOTES: 02/06 500 TAKING ONDANSETRON 4 MG TABLET DISINTEGRATING 1 TABLET ON THE TONGUE AND ALLOW TO DISSOLVE SUBLINGUALLY EVERY 4 HOURS NEEDED, NOTES: 02/06 500 TAKING SUMATRIPTAN SUCCINATE 50 MG TABLET 1 TABLET ORALLY BEFORE BEDTIME, NOTES: 02/05 1000 TAKING OXYCODONE HCL 5 MG CAPSULE 1-2 CAPSULES ORALLY EVERY 4 HOURS NEEDED, NOTES: 02/06 500 TAKING ATORVASTATIN CALCIUM 10 MG TABLET 1 TABLET ORALLY ONCE A DAY, NOTES: 02/05 2100 TAKING DULCOLAX STOOL SOFTENER 100 MG CAPSULE 1 CAPSULE NEEDED ORALLY ONCE A DAY, NOTES: 02/05 2100 TAKING ACYCLOVIR 400 MG TABLET 1 TABLET ORALLY TWICE A DAY NEEDED, NOTES: NOT RECENTLY TAKING BUSPIRONE HCL 30 MG TABLET 1 TABLET ORALLY TWICE A DAY, NOTES: 02/05 2100 TAKING SOLIFENACIN SUCCINATE 10 MG TABLET 1 TABLET ORALLY ONCE A DAY, NOTES: 02/06 500 TAKING LEVOTHROYXINE 25MG 1PILL 1 1 TIMES A DAY, NOTES: 02/06 500 NOT-TAKING PROPRANOLOL HCL ER 60 MG CAPSULE EXTENDED RELEASE 24 HOUR 1 CAPSULE ORALLY ONCE A DAY, NOTES: 12/28/19 NOT-TAKING NORTRIPYTLINE HCL 50 MGS-1CAP ORALLY BEFORE BEDTIME MEDICATION LIST REVIEWED AND RECONCILED WITH THE PATIENT PAST MEDICAL HISTORY NECK AND SHOULDER PAIN FIBROMYALGIA ARTHRITIS BRAIN ANEURYSM PTSD DEPRESSION-FOLL[facility] BLIND IN RIGHT EYE SPINAL MENINGITIS COPD CHRONIC KIDNEY DISEASE-CYST IN LEFT KIDNEY GALLBLADDER DISEASE BACK PAIN ALLERGIES BIAXIN: ABDOMINAL SWELLING - ALLERGY PEANUTS: ANAPHYLAXIS - ALLERGY SURGICAL HISTORY PLATES AND SCREWS IN NECK 2006 RODS AND SCREWS IN LUMBAR AREA 2010 APPENDECTOMY A CHILD FAMILY HISTORY FATHER: , LUNG CA 5 VA'S, SEVERAL CARDIAC STENTS, DIAGNOSED WITH DIABETES MOTHER: , FROM COMPLICATIONS FROM MVA, DIABETES 2 SON(S) - HEALTHY. OLDEST BROTHER- DIABETES, HEART [id number] OLDEST BROTHER- DIABETES. SOCIAL HISTORY GENERAL: TOBACCO USE ARE YOU A: VAPES PERIODICAL THROUGHTOUT THE DAY VAPORYES E-CIGARETTENO LATEX QUESTIONNAIRE LATEX ALLERGY : HAVE YOU EVER DEVELOPED ANY TYPE OF REACTION AFTER HANDLING LATEX PRODUCTS SUCH RUBBER GLOVES, CONDOMS, DIAPHRAGMS, BALLOONS, SOCKS, OR UNDERWEAR?NO LATEX ALLERGY : HAVE YOU EVER DEVELOPED ANY TYPE OF REACTION DURING OR AFTER DENTAL APPOINTMENT, VAGINAL/RECTAL EXAMINATION, SURGICAL PROCEDURE, OR ANY OTHER EXPOSURE?NO LATEX RISK : HAVE YOU EVER HAD ANY DIFFICULTY BREATHING OR HIVES AFTER EATING OR HANDLING ANY FRUITS, OR VEGETABLES; SUCH KIWI, BANANAS, STONE FRUITS, OR CHESTNUTSNO LATEX RISK : DO YOU HAVE A PREVIOUS PERSONAL HISTORY OF MORE THAN NINE SURGERIES, SPINA BIFIDA, OR REPEATED CATHERIZATIONS? NO LATEX RISK : ARE YOU FREQUENTLY EXPOSED TO LATEX PRODUCTS IN YOUR OCCUPATION?NO DATE ASKED : 02/03/2020 ALCOHOL SCREENING DID YOU HAVE A DRINK CONTAINING ALCOHOL IN THE PAST YEAR?NO POINTS0 INTERPRETATIONNEGATIVE RECREATIONAL DRUG USE DRUG USE?NO MORMONISM [id number] MUSLIM LANGUAGE LANGUAGES SPOKEN:NEPALI EDUCATION LEVEL OF EDUCATION: 11TH GRADE LEARNING BARRIERS / SPECIAL NEEDS BARRIERS TO LEARNING?NO HEARING IMPAIRED?NO VISION IMPAIRED?YES COGNITIVELY IMPAIRED?NO :CORRECTIVE LENSES BLIND IN RIGHT EYE READINESS TO LEARN?YES LEARNING PREFERENCES?NO LEARNING CAPABILITIES PRESENT?YES EMOTIONAL BARRIERS?NO SPECIAL DEVICES?YES :CANE, WALKER INTERNATIONAL LOGISTICS COORDINATOR NEEDED?NO DOMESTIC VIOLENCE DO YOU FEEL SAFE IN YOUR ENVIRONMENT?YES OCCUPATION: DISABLED. MARITAL STATUS: SINGLE. PAIN CLINIC PFS, CLERGY, PUBLIC HEALTH REFERRALS HAS THE PATIENT BEEN EDUCATED REGARDING HIS/HER PLAN OF CARE?YES HAS THE PATIENT BEEN EDUCATED REGARDING PAIN, THE RISK FOR PAIN, THE IMPORTANCE OF EFFECTIVE PAIN MANAGEMENT, AND THE PAIN ASSESSMENT PROCESS?YES ADVANCE DIRECTIVE ADVANCE DIRECTIVE DISCUSSED WITH PATIENT:YES PT STATES SHE DOES NOT HAVE ANY ADVANCED DIRECTIVES. SHE DECLINED INFORMATION ON HCP AT THIS TIME HOSPITALIZATION/MAJOR DIAGNOSTIC PROCEDURE SURGERIES CHILDBIRTH MENTAL HEALTH VITAL SIGNS WT 208.4 LBS, HT 53 IN, BMI 52.16 INDEX, BP 118/66 MM HG, HR 112 /MIN, RR 18 /MIN, TEMP 97.4 F, OXYGEN SAT % 95%, SAFE IN ENV? (Y/N) YES, NA INITIALS AW 0812, REVIEWED BY: KIM FLOOD RN BSN. EXAMINATION GENERAL EXAMINATION: A HISTORY AND PHYSICAL EXAM ON THE PATIENT WAS DONE ON 02/03/2020 (DATE OF ORIGINAL ASSESSMENT) IN PREPARATION OF SURGERY/PROCEDURE. I HAVE NOW REASSESSED THIS PATIENT'S HEALTH STATUS AND PERFORMED AN UPDATED EXAM TODAY. ALL CHANGES IN THE PATIENT'S HISTORY, PHYSICAL EXAM, PRE-EXISTING CONDITONS, AND INDICATIONS/CONTRAINDICATIONS TO THE PLANNED PROCEDURE AND ANESTHESIA ARE DOCUMENTED AND EVALUATED BELOW. I ATTEST TO THE ADEQUACY AND APPROPRIATENESS OF MY ASSESSMENT, AND CONFIRM THE NECESSITY FOR THE PLANNED PROCEDURE. THE PATIENT IS ALERT, ORIENTED TIMES THREE AND COOPERATIVE. HEART SHOWS REGULAR RHYTHM, NO MURMURS AND NO GALLOPS. LUNGS ARE CLEAR TO AUSCULTATION. ASSESSMENTS CERVICAL POST-LAMINECTOMY SYNDROME - M96.1 (PRIMARY) TREATMENT CERVICAL POST-LAMINECTOMY SYNDROME [facility] FLUORO GUIDE SPINE INJECTION (PAIN)[id number] MEDICATION: VERSED 1MG IV (MIDAZOLAM)MYRANDA MULLEN 02/07/2020 8:30:49 AM > LOT # [id number] EXP. 06/2022 BOOM FLOOD 02/07/2020 8:33:31 AM > VERIFIED. NIMCO BRISENO 02/07/2020 09:28:36 AM - SECOND DOSE ORDERED, VERIFIED WITH NIMCO LOPES 02/07/2020 09:30:16 AM - THIRD DOSE ORDERED, VERIFIED WITH MYRANDA CORONEL 02/07/2020 9:54:55 AM > 1 MGS GIVEN @ 0922, 2ND DOSE @ 0928 AND 3RD DOSE @ 0936 FOR A TOTAL OF 3MGS MEDICATION: FENTANYL CITRATE 50MCG IV MYRANDA MULLEN 02/07/2020 8:31:40 AM > LOT # [id number] EXP 10/2021 BOOM FLOOD 02/07/2020 8:34:23 AM > VERIFIED. NIMCO BRISENO 02/07/2020 09:27:29 AM - SECOND DOSE ORDERED, VERIFIED WITH NIMCO LOPES 02/07/2020 09:31:12 AM - THIRD DOSE ORDERED, VERIFIED WITH MYRANDA CORONEL 02/07/2020 9:56:45 AM > 1ST DOSE OF 50MCGS GIVEN @ 0925, 2ND DOSE AT 0927 AND 3RD DOSE AT 0930 FOR A TOTAL OF 150MCGS OXYGEN AT 2 LITERS PER NASAL CANNULAMYRANDA MULLEN 02/07/2020 9:57:36 AM > ON AT 0904 AND OFF AT 0942 [facility] 02/07/2020 8:28:27 AM > SEE PROCEDURE SECTION. PAZMYRANDA 02/07/2020 9:59:03 AM > TOTAL OF 500 ML GIVEN OTHERS NOTES: 02/04/20 1637 PAT COMPLETED. PROCEDURES PAIN NURSING RECORD PRE-PROCEDURE IV SITE LEFT HAND, IV STARTED # 20, IV STARTED BY: Brady MULLEN RN, IV ATTEMPTS 1, PRE-PROCEDURE ORAL MEDICATIONS IV SEDATION MEDICATIONS ONLY SEE TREATMENT SECTION. PROCEDURE IN ROOM 0903, PHYSICIAN IN ROOM 0921, START 0932, FINISH 0930, PHYSICIAN OUT OF ROOM 0935, OUT OF ROOM 0945, STEROID DEPOMEDROL, O2 NC 2 LPM, ON @: 0904 OFF @: 0942, ECG NORMAL SINUS, PATIENT SHIELDED YES, SAFETY STRAP YES, PREP BETADINE, IV INFUSED LACTATED RINGERS 500CC, DRESSING TEGADERM DR. CHOUDHARY LOC: BOOM FLOOD 02/07/2020 9:03:06 AM > 1. ALERT, ORIENTED RESP: BOOM FLOOD 02/07/2020 9:03:06 AM > 1. REGULAR, NO DYSPNEA COLOR: BOOM FLOOD 02/07/2020 9:03:06 AM > 1. PINK SKIN: BOOM FLOOD 02/07/2020 9:03:06 AM > 1. WARM, DRY POSITION: BOOM FLOOD 02/07/2020 9:03:06 AM > 1. PRONE VITALS: BOOM FLOOD 02/07/2020 9:11:06 AM > 124/80, 93, 100% O2 @2LPM,16. BOOM FLOOD 02/07/2020 9:17:06 AM > 132/82, 96, 100% O2 @2LPM,16. BOOM FLOOD 02/07/2020 9:20:06 AM > 121/76, 95, 100% O2 @2LPM,16. BOOM FLOOD 02/07/2020 9:23:06 AM > 124/77, 99, 100% O2 @2LPM,16. BOOM FLOOD 02/07/2020 9:28:06 AM > 132/60, 99, 100% O2 @2LPM,16. BOOM FLOOD 02/07/2020 9:33:06 AM > 136/60, 99, 100% O2 @2LPM,16. BOOM FLOOD 02/07/2020 9:39:40 AM > 131/68, 97, 100% O2 @ 2LPM, 16. BOOM FLOOD 02/07/2020 09:45:21 AM > 134/72, 100% RA, 16. BOOM FLOOD 02/07/2020 09:59:56 AM > POST PROCEDURE 124/76, 98, 98% RA, 16. DISCHARGE: POST PAIN 10/24, DRESSING SITE DRY AND INTACT, IV DISCONTINUED, SITE CLEAR, CATHETER INTACT, GAIT WHEELCHAIR, TEACHING COMPLETED, PATIENT ACKNOWLEDGES UNDERSTANDING YES, PATIENT DISCHARGED AT 1005 PN CERVICAL EPIDURAL PRE PROCEDURE DIAGNOSIS CERVICAL POST LAMINECTOMY PAIN SYNDROME POST PROCEDURE DIAGNOSIS CERVICAL POST LAMINECTOMY PAIN SYNDROME PROCEDURE CERVICAL EPIDURAL STEROID INJECTION UNDER FLUOROSCOPIC GUIDANCE SURGEON DR. ZEE CHOUDHARY STOCKHOLDER NONE ANESTHESIA LOCAL WITH IV SEDATION PRE PROCEDURE NOTE THE PATIENT HAS A HISTORY OF CHRONIC CERVICAL PAIN. I EVALUATED THE PATIENT AND REVIEWED THE CHART. I WENT OVER THE RISKS, ALTERNATIVES, AND BENEFITS ASSOCIATED WITH THIS PROCEDURE. THE PATIENT WOULD LIKE TO MOVE FORWARD WITH IV SEDATION DUE TO ANXIETY AND DISCOMFORT ASSOCIATED WITH THE PROCEDURE. I DISCUSSED THAT THE USE OF STEROIDS MAY CONTRIBUTE TO IMMUNOSUPPRESSION OF THE PATIENT'S BODY AGAINST INFECTIONS SUCH COVID-19. THE PATIENT IS AWARE OF THE POTENTIAL COMPLICATIONS ASSOCIATED WITH THIS VIRUS, INCLUDING, BUT NOT LIMITED TO, . THE PATIENT WOULD LIKE TO PROCEED AND GIVE CONSENT TO PERFORMED THE PROCEDURE. THE PATIENT DENIES UNEXPLAINABLE WEIGHT LOSS, FEVER, CHILLS, OR NEW CHANGES IN URINARY OR BOWEL CONTROL. THE PATIENT IS COVID-19 NEGATIVE DESCRIPTION OF PROCEDURE THE PATIENT WAS BROUGHT TO THE PROCEDURE ROOM AND PLACED IN THE PRONE POSITION. THE CERVICOTHORACIC AREA WAS CLEANED WITH BETADINE SOLUTION AND DRAPED ASEPTICALLY. THE PROCEDURE WAS DONE UNDER STERILE CONDITIONS. A TIMEOUT WAS PERFORMED WHERE LATERALITY AND THE SITE OF THE PROCEDURE WERE CHECKED AND CONFIRMED WITH EVERYONE IN THE ROOM. UNDER FLUOROSCOPIC GUIDANCE, THE TARGET WAS SELECTED AT THE INTERLAMINAR LEVEL OF C7-T1 AT 0932. I CONFIRMED AGAIN WITH EVERYONE IN THE ROOM THE LATERALITY OF THE TARGET. LIDOCAINE WAS USED TO NUMB THE SKIN AND THE SUBCUTANEOUS TISSUE BELOW IT. EPIDURAL TUOHY NEEDLE, 17-GAUGE, WAS ADVANCED UNDER FLUOROSCOPIC GUIDANCE AND FOLLOWING PATIENT FEEDBACK UNTIL THE EPIDURAL SPACE WAS REACHED 6 CM DEEP INTO THE SKIN BY THE LOSS OF RESISTANCE TECHNIQUE. ISOVUE-M DYE 30%, 0.25 ML, WAS INJECTED SHOWING ADEQUATE SPREAD OF THE DYE. THEN, A SOLUTION OF 3 ML OF NORMAL SALINE WITH DEPO-MEDROL 80MG WAS INJECTED SLOWLY FOLLOWING PATIENT FEEDBACK. THE MEDICATIONS WERE VERIFIED WITH THE NURSE. THERE WAS NO EVIDENCE OF BLOOD, PARESTHESIA OR CEREBROSPINAL FLUID DURING THE PROCEDURE. ESTIMATED BLOOD LOSS WAS LESS THAN 5 ML. THE PATIENT WAS SENT TO THE RECOVERY ROOM. THE PATIENT WAS MOVING THE EXTREMITIES AND DOING WELL. THERE WERE NO COMPLICATIONS DURING THE PROCEDURE. FLUOROSCOPY TIME WAS 35 SECONDS. THE PATIENT RECEIVED VERSED 3 MG AND FENTANYL 150 MCG IV IN DIVIDED DOSES. FACE TO FACE START TIME: 921 FACE TO FACE END TIME: 941 TOTAL FACE TO FACE TIME: 20 MINUTES POST PROCEDURE NOTE DEPENDING ON THE RESULTS, WE SHOULDER CONSIDER WORKING WITH THE CERVICAL FACET JOINTS. THE FUSION IS FROM C5 TO C7, CONSIDER A BILATERAL C2-C3, C3-C4, C4-C5 FACET BLOCK. THE PATIENT WILL BE SEEN IN A FOLLOW UP IN THE NEXT FEW WEEKS. I AM LOOKING FOR LONG LASTING RELIEF FOR THE PATIENT WITH THIS INTERVENTION. INSTRUCTIONS WERE GIVEN, QUESTIONS WERE ANSWERED, AND THE PATIENT EXPRESSED UNDERSTANDING AND AGREES WITH THE PLAN. I, NIMCO BRISENO, DOCUMENTED THE ABOVE INFORMATION ACTING A SCRIBE FOR DR. CHOUDHARY. I HAVE REVIEWED THE ABOVE DOCUMENT, WRITTEN BY NIMCO BRISENO, ALUMINUM BOAT INSPECTOR, AND I VERIFY THAT IT IS ACCURATE PROCEDURE CODES 90617 CERVICAL/THORACIC W/ IMAGING [id number] MOD SED SAME PHYS/QHP 5/>YRS DISPOSITION & COMMUNICATION FOLLOW UP FOLLOW UP WITH CHECKERER HAND (REASON: POST TOMMY WITH IV SEDATION) ELECTRONICALLY SIGNED BY ZEE CHOUDHARY MD, MD ON 02/16/2020 AT 09:17 AM EST DISCLAIMER : THIS IS A VISIT SUMMARY EXTRACTED FROM THE [employer] CHART. IT IS NOT A COPY OF THE [employer] PROGRESS NOTE. MTDD
== END ==
LOC: M PAIN 08:00
PROVIDERS: ATTEND Anesthesiology
DX: M96.1 Postlaminectomy syndrome, not elsewhere classified (principal); M79.7 Fibromyalgia; J44.9 Chronic obstructive pulmonary disease, unspecified; F17.290 Nicotine dependence, other tobacco product, uncomplicated; Z86.59 Personal history of other mental and behavioral disorders; Z88.1 Allergy status to other antibiotic agents; Z91.010 Allergy to peanuts; E66.01 Morbid (severe) obesity due to excess calories; Z68.43 Body mass index [BMI] 50.0-59.9, adult; Z79.899 Other long term (current) drug therapy
CPT/HCPCS: 62321; 99152; J1030; J2250; J3010; Q9967

== ENCOUNTER → 2020-02-22 | Outpatient (CLI) | payer MEDICARE ==
[~2020-02-22] MED LIST changes: -ISOVUE-M 300 61% 15ML VIAL As Ordered ONE; -LIDOCAINE 1% SDV 30ML VIAL As Ordered ONE; -MIDAZOLAM INJ 2MG/2ML VIAL (J2250 PER 1MG) As Ordered ONE; -fentaNYL 100 MCG/2 ML INJECTION (J3010) As Ordered ONE; -methylPREDNISolone SUSP 40MG/ML 1ML VIAL (DEPO MEDROL) As Ordered ONE
--- NOTE | 2020-02-24 00:47 | ECWPNPC ---
PATIENT NAME: RAGHAVENDRA PONCE : 1970 GENDER: FEMALE VISIT DATE: 02/22/2020 DISCHARGE DATE: 02/22/20 1518 VISIT LOCKED DATE TIME: PHYSICIAN: DAMION ABRAMS RESOURCE: DAMION ABRAMS REASON FOR APPOINTMENT 1. POST TOMMY C7-T1 W/ IV SEDATION HISTORY OF PRESENT ILLNESS GENERAL: 49-YEAR-OLD FEMALE IN FOR POST CERVICAL EPIDURAL STEROID INJECTION FOLLOW-UP. PATIENT FEELS THE PROCEDURE WAS INEFFECTIVE. SHE RATES HER PAIN CURRENTLY AT A 9 OUT OF 10 AND DESCRIBES IT ACHING, BURNING, CONTINUOUS, SHARP, AND STABBING. FALL RISK SCREENING: SCREENING :ONE FALL WITH INJURY IN THE PAST YEAR PAIN SCREENING: PATIENT HAS A COMPLAINT OF ACUTE OR CHRONIC PAIN :YES LOCATION OF PAIN:NECK RIGHT NECK AND BOTH ARMS INTENSITY OF PAIN (SCALE OF 1 TO 10):9 WHAT DOES YOUR PAIN FEEL LIKE:ACHING, BURNING, CONTINOUS, SHARP, STABBING DURATION:CONTINOUS, CONSTANT PAIN IS INCREASED BY:ACTIVITIES PAIN IS DECREASED BY:USE OF PAIN MEDICATIONS, OTHERS HEATING PAD NURSING NOTE: -. PAIN CENTER INTAKE QUESTIONS: DO YOU HAVE A HISTORY OF MRSA? :NO DO YOU TAKE A BLOOD THINNERS? :NO DO YOU HAVE ANY BLEEDING DISORDERS? :NO ANY NEW NUMBNESS OR WEAKNESS IN YOUR LEGS OR ARMS? :YES NOTED NEW NUMBNESS IN BOTH HANDS 02/20. BETTER TODAY BUT NOT RESOLVED. ANY PACEMAKER,DEFIBRILLATOR, OR DORSAL COLUMN STIMULATOR? :NO DO YOU HAVE ANY RASHES OR OPEN SORES? :NO ARE YOU ALLERGIC TO IV DYE? :NO ARE YOU DIABETIC? :NO ANY NEW PROBLEMS WITH YOUR MEDICATIONS? :NO HAVE YOU RECEIVED A VACCINE IN THE PAST 30 DAYS? :NO DO YOU PLAN TO RECEIVE A VACCINE IN THE NEXT 21 DAYS? :NO DO YOU NEED ANY PRESCRIPTION? :NO DO YOU TAKE ANY IMMUNOSUPPRESSIVE MEDICATIONS? :NO IS THERE A CHANCE YOU COULD BE ? :NO ARE YOU BREAST FEEDING? :NO CURRENT MEDICATIONS TAKING GABAPENTIN 800 MG TABLET 1 TABLET ORALLY TID TAKING SONATA 10 MGS -1CAP ORALLY BEFORE BEDTIME NEEDED TAKING VITAMIN D 50 MCG (2000 UT) TABLET 1 TABLET ORALLY ONCE A DAY TAKING PROAIR HFA 108 (90 BASE) MCG/ACT AEROSOL SOLUTION 2 PUFFS NEEDED INHALATION QID PRN TAKING PANTOPRAZOLE SODIUM 40 MG TABLET DELAYED RELEASE 1 TAB ORALLY ONCE A DAY TAKING ONDANSETRON 4 MG TABLET DISINTEGRATING 1 TABLET ON THE TONGUE AND ALLOW TO DISSOLVE SUBLINGUALLY EVERY 4 HOURS NEEDED TAKING SUMATRIPTAN SUCCINATE 50 MG TABLET 1 TABLET ORALLY BEFORE BEDTIME TAKING OXYCODONE HCL 5 MG CAPSULE 1-2 CAPSULES ORALLY EVERY 4 HOURS NEEDED TAKING ATORVASTATIN CALCIUM 10 MG TABLET 1 TABLET ORALLY ONCE A DAY TAKING DULCOLAX STOOL SOFTENER 100 MG CAPSULE 1 CAPSULE NEEDED ORALLY ONCE A DAY TAKING ACYCLOVIR 400 MG TABLET 1 TABLET ORALLY TWICE A DAY NEEDED, NOTES: NOT RECENTLY TAKING BUSPIRONE HCL 30 MG TABLET 1 TABLET ORALLY TWICE A DAY TAKING SOLIFENACIN SUCCINATE 10 MG TABLET 1 TABLET ORALLY ONCE A DAY TAKING LEVOTHYROXINE SODIUM 25 MCG TABLET 1 TABLET IN THE MORNING ON AN EMPTY STOMACH ORALLY ONCE A DAY NOT-TAKING LEVOTHROYXINE 25MG 1PILL 1 1 TIMES A DAY, NOTES: 02/06 0500 UNKNOWN PROPRANOLOL HCL ER 60 MG CAPSULE EXTENDED RELEASE 24 HOUR 1 CAPSULE ORALLY ONCE A DAY, NOTES: 12/28/19 UNKNOWN NORTRIPYTLINE HCL 50 MGS-1CAP ORALLY BEFORE BEDTIME MEDICATION LIST REVIEWED AND RECONCILED WITH THE PATIENT PAST MEDICAL HISTORY NECK AND SHOULDER PAIN FIBROMYALGIA ARTHRITIS BRAIN ANEURYSM PTSD DEPRESSION-[facility] BLIND IN RIGHT EYE SPINAL MENINGITIS COPD CHRONIC KIDNEY DISEASE-CYST IN LEFT KIDNEY GALLBLADDER DISEASE BACK PAIN ALLERGIES BIAXIN: ABDOMINAL SWELLING - ALLERGY PEANUTS: ANAPHYLAXIS - ALLERGY SURGICAL HISTORY PLATES AND SCREWS IN NECK 2006 RODS AND SCREWS IN LUMBAR AREA 2011 APPENDECTOMY A CHILD FAMILY HISTORY FATHER: , LUNG [place] 5 IL'S, SEVERAL CARDIAC STENTS, DIAGNOSED WITH DIABETES MOTHER: , FROM COMPLICATIONS FROM MVA, DIABETES 2 SON(S) - HEALTHY. OLDEST BROTHER- DIABETES, HEART [id number] OLDEST BROTHER- DIABETES. SOCIAL HISTORY GENERAL: TOBACCO USE ARE YOU A: VAPES PERIODICAL THROUGHTOUT THE DAY VAPORYES E-CIGARETTENO LATEX QUESTIONNAIRE LATEX ALLERGY : HAVE YOU EVER DEVELOPED ANY TYPE OF REACTION AFTER HANDLING LATEX PRODUCTS SUCH RUBBER GLOVES, CONDOMS, DIAPHRAGMS, BALLOONS, SOCKS, OR UNDERWEAR?NO LATEX ALLERGY : HAVE YOU EVER DEVELOPED ANY TYPE OF REACTION DURING OR AFTER DENTAL APPOINTMENT, VAGINAL/RECTAL EXAMINATION, SURGICAL PROCEDURE, OR ANY OTHER EXPOSURE?NO LATEX RISK : HAVE YOU EVER HAD ANY DIFFICULTY BREATHING OR HIVES AFTER EATING OR HANDLING ANY FRUITS, OR VEGETABLES; SUCH KIWI, BANANAS, STONE FRUITS, OR CHESTNUTSNO LATEX RISK : DO YOU HAVE A PREVIOUS PERSONAL HISTORY OF MORE THAN NINE SURGERIES, SPINA BIFIDA, OR REPEATED CATHERIZATIONS? NO LATEX RISK : ARE YOU FREQUENTLY EXPOSED TO LATEX PRODUCTS IN YOUR OCCUPATION?NO DATE ASKED : 02/22/2020 ALCOHOL SCREENING DID YOU HAVE A DRINK CONTAINING ALCOHOL IN THE PAST YEAR?NO POINTS0 INTERPRETATIONNEGATIVE RECREATIONAL DRUG USE DRUG USE?NO PENTECOSTALISM [id number] [employer] LANGUAGE LANGUAGES SPOKEN:[place] EDUCATION LEVEL OF EDUCATION: 11TH GRADE LEARNING BARRIERS / SPECIAL NEEDS BARRIERS TO LEARNING?NO HEARING IMPAIRED?NO VISION IMPAIRED?YES :CORRECTIVE LENSES BLIND IN RIGHT EYE COGNITIVELY IMPAIRED?NO READINESS TO LEARN?YES LEARNING PREFERENCES?NO LEARNING CAPABILITIES PRESENT?YES EMOTIONAL BARRIERS?NO SPECIAL DEVICES?YES :CANE, WALKER DIRECTOR ACCOUNT MANAGEMENT NEEDED?NO DOMESTIC VIOLENCE DO YOU FEEL SAFE IN YOUR ENVIRONMENT?YES OCCUPATION: DISABLED. MARITAL STATUS: SINGLE. PAIN CLINIC PFS, CLERGY, PUBLIC HEALTH REFERRALS HAS THE PATIENT BEEN EDUCATED REGARDING HIS/HER PLAN OF CARE?YES HAS THE PATIENT BEEN EDUCATED REGARDING PAIN, THE RISK FOR PAIN, THE IMPORTANCE OF EFFECTIVE PAIN MANAGEMENT, AND THE PAIN ASSESSMENT PROCESS?YES ADVANCE DIRECTIVE ADVANCE DIRECTIVE DISCUSSED WITH PATIENT:YES PT STATES SHE DOES NOT HAVE ANY ADVANCED DIRECTIVES. SHE DECLINED INFORMATION ON HCP AT THIS TIME HOSPITALIZATION/MAJOR DIAGNOSTIC PROCEDURE SURGERIES CHILDBIRTH MENTAL HEALTH REVIEW OF SYSTEMS CONSTITUTIONAL: ANY RECENT FEVER NO . CHILLS NO . WEIGHT CHANGE OF UNKNOWN REASONS NO . GASTROENTEROLOGY: NEW UNEXPLAINABLE CHANGES IN BOWEL CONTROL NO . CONSTIPATION NO . GENITOURINARY: ANY NEW CHANGE IN BLADDER CONTROL? NO . NEUROLOGY: NEW ONSET DIZZINESS OR NEUROLOGICAL CHANGES NOT MENTIONED NO . NEW NUMBNESS OR PAIN PATTERNS NOT MENTIONED AND PERTINENT TO TODAY'S VISIT NO . CARDIOLOGY: NEW CHEST PRESSURE NO . NEW CHEST PAIN NO . RESPIRATORY: UNEXPLAINABLE COUGH NO . NEW SHORTNESS OF BREATH NO . VITAL SIGNS WT 211.0 LBS, HT 53 IN, BMI 52.81 INDEX, BP 132/79 MM HG, HR 107 /MIN, RR 18 /MIN, TEMP 98.1 F, OXYGEN SAT % 96%, SAFE IN ENV? (Y/N) YES, NA INITIALS AW 1431, REVIEWED BY: JONNATHAN ECHOLS. EXAMINATION GENERAL EXAMINATION: GENERALNO ACUTE DISTRESS, WELL NOURISHED AND HYDRATED. PSYCHAPPROPRIATE MOOD AND AFFECT . LUNGS:CLEAR TO AUSCULTATION BILATERALLY, NO WHEEZES, RHONCHI, RALES. HEART:NO MURMURS, REGULAR RATE AND RHYTHM. ASSESSMENTS OTHER CHRONIC PAIN - G89.29 (PRIMARY) CERVICAL POST-LAMINECTOMY SYNDROME - M96.1 TREATMENT OTHER CHRONIC PAIN PAIN PROCEDURE LOG THIS PROCEDURE WAS REVIEWED BY GERALD LOPES ON 02/23/2020 AT 16:07 PM EST NOTES: 49-YEAR-OLD FEMALE IN FOR POST CERVICAL EPIDURAL STEROID INJECTION FOLLOW-UP. GIVEN PRESENTING SYMPTOMS RECOMMEND PATIENT FOLLOW-UP IN ONE MONTH. INFORMED PATIENT THIS SWEATER OPERATOR WE'LL DISCUSS CASE WITH DR. CHOUDHARY AND SEE WHAT HE RECOMMENDS. PATIENT HAS EXPRESSED UNDERSTANDING OF AND WAS IN AGREEMENT WITH TREATMENT PLAN. GIVEN TIME TO ASK QUESTIONS AND EXPRESS CONCERNS. PROCEDURE CODES FA211 ESTABILISHED PATIENT [facility] FACILITY CHARGE DISPOSITION & COMMUNICATION FOLLOW UP 4 WEEKS (REASON: NECK PAIN) ELECTRONICALLY SIGNED BY TOMMY KNOWLES ON 02/23/2020 AT 09:18 AM EST DISCLAIMER : THIS IS A VISIT SUMMARY EXTRACTED FROM THE [employer] CHART. IT IS NOT A COPY OF THE [employer]: turn off the lightsINICALPracto Technologies Pvt. Ltd PROGRESS NOTE. CASSIDY
== END ==
LOC: M PAIN 14:00
PROVIDERS: ATTEND Family Medicine
DX: M96.1 Postlaminectomy syndrome, not elsewhere classified (principal); M79.7 Fibromyalgia; J44.9 Chronic obstructive pulmonary disease, unspecified; F17.290 Nicotine dependence, other tobacco product, uncomplicated; Z86.59 Personal history of other mental and behavioral disorders; Z88.1 Allergy status to other antibiotic agents; Z91.010 Allergy to peanuts; E66.01 Morbid (severe) obesity due to excess calories; Z68.43 Body mass index [BMI] 50.0-59.9, adult; Z79.891 Long term (current) use of opiate analgesic; Z79.899 Other long term (current) drug therapy